=== PATIENT | male | born 1985 | race Two or more races ===

== ENCOUNTER 2022-12-08 09:40 | Emergency (ER) | payer MEDICAID, OTHER ==
[~2022-12-08] VITALS: Ht 182.9 cm; Wt 121.6 kg
[2022-12-08 11:39] VITALS: BP 147/99
[2022-12-08] MEDS ORDERED: TETRACAINE HCL 0.5% OPTH(EYE) SOLN 4ML RIGHTEYE ONE (11:45)
[2022-12-08] MEDS ORDERED: FLUORESCEIN SOD OPTH TEST STRIP RIGHTEYE ONE (11:45)
== END 2022-12-08 11:48 | disposition left against medical advice (07) ==
LOC: ER 09:40
DX: H57.11 Ocular pain, right eye (principal); Z53.21 Procedure and treatment not carried out due to patient leaving prior to being seen by health care provider

== ENCOUNTER 2023-01-03 15:54 | Emergency (ER) | payer MEDICAID ==
[2023-01-04] MEDS ORDERED: BACDST PO (08:45)
[2023-01-04] MEDS ORDERED: CEPH500T PO (08:45)
[2023-01-04] MEDS ORDERED: IBUP1TAB5 PO (08:45)
== END 2023-01-03 16:40 | disposition left against medical advice (07) ==
LOC: ER 15:54
DX: R51.9 Headache, unspecified (principal); Z53.21 Procedure and treatment not carried out due to patient leaving prior to being seen by health care provider

== ENCOUNTER 2023-01-04 05:05 | Emergency (ER) | payer MEDICAID ==
[~2023-01-04] VITALS: Ht 175.3 cm; Wt 117.0 kg
[2023-01-04 07:09] VITALS: BP 110/80
[2023-01-04] MEDS ORDERED: cefTRIAXone SOD 1,000 MG VL IM ONE (07:30)
[2023-01-04] MEDS ORDERED: HYDROcodone-ACET 10/325MG TAB PO ONE (07:30)
[2023-01-04] MEDS ORDERED: KETOROLAC TROMETH 30 MG/ML 1ML VIAL IM ONE (07:30)
[2023-01-04 08:13] LABS: Basophils # (auto) 0 10 ^3/uL (0-0.2); Basophils % (auto) 0.4 % (0.0-2.0); Eosinophils # (auto) 0.1 10 ^3/uL (0-0.8); Eosinophils % (auto) 0.5 % (0.0-7.0); Hematocrit 45.1 % (41.0-53.0); Hemoglobin 16.2 g/dL (13.5-17.5); Lymphocytes # (auto) 1.3 10 ^3/uL (0.4-5.4); Mean Corpuscular Hemoglobin 29.6 pg (28.0-32.0); Mean Corpuscular Hgb Conc. 35.8 g/dL (32.0-36.0); Mean Corpuscular Volume 82.7 fL (80.0-100.0); Monocytes # (auto) 1.1 10 ^3/uL (0-1.3); Neutrophils # (auto) 8.1 10 ^3/uL (1.6-8.6); Neutrophils % (auto) 77.1 % (37.0-80.0); Nucleated Red Blood Cells % 0.3 %; Red Blood Cells 5.45 10^6/uL (4.5-5.90); Red Cell Distribution Width 14.3 % (11.8-14.3); White Blood Cell 10.5 10^3/uL (4.4-10.8)
[2023-01-04 08:28] LABS: Potassium 3.8 mmol/L (3.5-5.1)
[2023-01-04 08:36] LABS: Albumin 3.8 g/dL (3.4-5.0); BUN/Creatinine Ratio 14.8 (10.0-20.0); Bilirubin, Total 0.7 mg/dL (0.2-1.0); Calcium 9.2 mg/dL (8.5-10.1); Total Protein 8.4 g/dL (6.4-8.2)
[2023-01-04] MEDS ORDERED: IBUP1TAB5 PO (08:45)
[2023-01-04] MEDS ORDERED: BACDST PO (08:45)
[2023-01-04] MEDS ORDERED: CEPH500T PO (08:45)
== END 2023-01-04 09:01 | disposition home or self-care (01) ==
LOC: ER 05:05
DX: K12.2 Cellulitis and abscess of mouth (principal); Z88.2 Allergy status to sulfonamides
CPT/HCPCS: 36415; 80053; 83605; 85025; 87040; 96372; 99284; J0696; J1885

== ENCOUNTER 2023-03-29 19:09 | Emergency (ER) | payer MEDICAID ==
[~2023-03-29] VITALS: Ht 172.7 cm; Wt 240.0 kg
[~2023-03-29 19:09] MED LIST: BACDST PO; CEPH500T PO; IBUP1TAB5 PO
[2023-03-29 20:00] VITALS: PULSE 72; RESP 18; O2SAT 98
[2023-03-29 20:40] LABS: Basophils # (auto) 0 10 ^3/uL (0-0.2); Basophils % (auto) 0.7 % (0.0-2.0); Eosinophils # (auto) 0.1 10 ^3/uL (0-0.8); Eosinophils % (auto) 1.3 % (0.0-7.0); Hematocrit 42.2 % (41.0-53.0); Hemoglobin 14.8 g/dL (13.5-17.5); Lymphocytes # (auto) 1.5 10 ^3/uL (0.4-5.4); Lymphocytes % (auto) 20.9 % (10.0-50.0); Mean Corpuscular Hemoglobin 29.7 pg (28.0-32.0); Mean Corpuscular Hgb Conc. 35.1 g/dL (32.0-36.0); Mean Corpuscular Volume 84.6 fL (80.0-100.0); Monocytes # (auto) 0.5 10 ^3/uL (0-1.3); Monocytes % (auto) 7.2 % (0.0-12.0); Neutrophils # (auto) 4.9 10 ^3/uL (1.6-8.6); Neutrophils % (auto) 69.9 % (37.0-80.0); Nucleated Red Blood Cells % 0.2 %; Red Blood Cells 4.98 10^6/uL (4.5-5.90); Red Cell Distribution Width 13.8 % (11.8-14.3)
[2023-03-29 20:42] LABS: Alanine Aminotransferase 20 U/L (7-40); Albumin 4.1 g/dL (3.2-4.8); Alkaline Phosphatase 58 U/L (46-116); Anion Gap 4.9 (5-15); Aspartate Aminotransferase 16 U/L (13-40); BUN/Creatinine Ratio 5.5 (10.0-20.0); Bilirubin, Total 0.6 mg/dL (0.2-1.0); Blood Urea Nitrogen 5 mg/dL (9-23); Calcium 9.2 mg/dL (8.7-10.4); Carbon Dioxide 27.1 mmol/L (20-30); Chloride 107 mmol/L (98-107); Glucose 116 mg/dL (74-106); Potassium 3.9 mmol/L (3.5-5.1); Sodium 139 mmol/L (136-145); Total Protein 6.9 g/dL (5.7-8.2)
[2023-03-29 20:53] VITALS: BP 152/104; PULSE 83; RESP 95; O2SAT 95
[2023-03-29 20:56] LABS: INR 0.99 (0.9-1.15); Partial Thromboplastin Time 27.2 SEC (24.5-34.5); Prothrombin Time 10.4 sec (9.3-11.8)
== END 2023-03-29 21:06 | disposition left against medical advice (07) ==
LOC: EDBD 19:09 → ER 19:13
DX: S06.0XAA Concussion with loss of consciousness status unknown, initial encounter (principal); R73.9 Hyperglycemia, unspecified; F15.90 Other stimulant use, unspecified, uncomplicated; Z79.1 Long term (current) use of non-steroidal anti-inflammatories (NSAID); Z79.899 Other long term (current) drug therapy; Z98.890 Other specified postprocedural states; Y04.2XXA Assault by strike against or bumped into by another person, initial encounter; Y93.89 Activity, other specified; Y92.830 Public park as the place of occurrence of the external cause; Y99.8 Other external cause status
CPT/HCPCS: 36415; 70450; 72125; 80053; 85025; 85610; 85730; 93005

== ENCOUNTER 2023-05-04 17:57 | Emergency (ER) | payer MEDICAID ==
[~2023-05-04] VITALS: Ht 177.8 cm; Wt 96.0 kg
[2023-05-04] MEDS ORDERED: HYDROcodone-ACET 5/325MG TAB PO ONE (20:30)
[2023-05-04] MEDS ORDERED: CLIN300C70 PO (21:12)
[2023-05-04 21:40] VITALS: BP 121/76; PULSE 114; RESP 20; O2SAT 98
== END 2023-05-04 21:45 | disposition home or self-care (01) ==
LOC: EDBD 17:57 → ER 17:57
DX: L02.413 Cutaneous abscess of right upper limb (principal); F17.210 Nicotine dependence, cigarettes, uncomplicated; F12.10 Cannabis abuse, uncomplicated; F15.10 Other stimulant abuse, uncomplicated

== ENCOUNTER 2024-02-13 16:30 | Emergency (ER) | payer MEDICAID ==
[~2024-02-13] VITALS: Ht 172.7 cm; Wt 120.4 kg
[~2024-02-13 16:30] MED LIST changes: +CLIN1CAP70 PO
[2024-02-13] MEDS ORDERED: NALOXONE HCL 1MG/ML 2ML SYRINGE ONE (16:37)
[2024-02-13] MEDS: NALOXONE HCL 1MG/ML 2ML SYRINGE IV ONE (16:40)
[2024-02-13] MEDS ORDERED: ONDANSETRON HCL 4 MG/2 ML VIAL IM ONE (17:00)
[2024-02-13] MEDS ORDERED: SODIUM CHLORIDE 0.9% 1,000 ML IV ONE (17:00)
[2024-02-13] MEDS ORDERED: KETOROLAC TROMETH 60MG/2ML VIAL IM ONE (17:00)
== END 2024-02-13 18:43 | disposition left against medical advice (07) ==
LOC: EDBD 16:30 → ER 16:41
DX: R40.0 Somnolence (principal); Z53.21 Procedure and treatment not carried out due to patient leaving prior to being seen by health care provider
CPT/HCPCS: 96374; J2310